=== PATIENT | male | born 1990 ===

== ENCOUNTER → 2025-09-26 09:57 | Outpatient (REF) | payer BC, SELFPAY | LOC: RAD 09:57 | PROVIDERS: ATTENDING PHYSICIAN Internal Medicine Gastroenterology; FAMILY PHYSICIAN Physician Assistant | DX: K59.09 Other constipation (principal) | CPT/HCPCS: 74018 ==

== ENCOUNTER 2025-09-29 06:23 | Day surgery (SDC) | payer BC, SELFPAY | END 2025-09-29 16:19 | disposition home or self-care (01) | LOC: GI 06:23 | PROVIDERS: ATTENDING PHYSICIAN Internal Medicine Gastroenterology | DX: K59.04 Chronic idiopathic constipation (principal); K64.8 Other hemorrhoids | CPT/HCPCS: 45378 ==